=== PATIENT | female | born 1980 | race Caucasian/White ===

== ENCOUNTER 2021-04-29 00:29 | Emergency (ER) | payer OTHER ==
[~2021-04-29] VITALS: Ht 152.4 cm; Wt 70.9 kg
[2021-04-29] MEDS ORDERED: IRON1TAB2 PO (00:41)
[2021-04-29] MEDS ORDERED: ZOLO100T PO (00:41)
[2021-04-29] MEDS ORDERED: BUSP10TA PO (00:41)
[2021-04-29] MEDS ORDERED: VITA100093 PO (00:41)
[2021-04-29] MEDS ORDERED: KETOROLAC 30 MG/ML 1ML VIAL IV ONE (02:35)
[2021-04-29] MEDS ORDERED: ACETAMINOPHEN 500 MG TAB PO ONE (02:35)
[2021-04-29] MEDS ORDERED: diphenhydrAMINE 50MG/ML VIAL (J1200) IV ONE (02:35)
[2021-04-29] MEDS ORDERED: NS 1,000 ML IV ONE (02:35)
[2021-04-29] MEDS ORDERED: METOCLOPRAMIDE INJ 10MG/2ML VIAL (J2765 PER 1) IV ONE (03:00)
[2021-04-29 04:00] VITALS: BP 155/92
== END 2021-04-29 06:08 | disposition home or self-care (01) ==
LOC: M ED 00:29
DX: G43.909 Migraine, unspecified, not intractable, without status migrainosus (principal); Z79.899 Other long term (current) drug therapy; Z86.69 Personal history of other diseases of the nervous system and sense organs; Z88.1 Allergy status to other antibiotic agents; Z88.2 Allergy status to sulfonamides
CPT/HCPCS: 84702; 96374; 96375; 99284; J1200; J1885; J2765

== ENCOUNTER 2021-05-15 16:42 | Inpatient (IN) | payer OTHER ==
[~2021-05-15] VITALS: Ht 152.4 cm; Wt 75.1 kg
[~2021-05-15 16:42] MED LIST: BUSP10TA PO; IRON1TAB2 PO; VITA100093 PO; ZOLO100T PO
[2021-05-15] MEDS ORDERED: ONDANSETRON 4MG/2ML VIAL IV STA (18:00)
[2021-05-15 18:12] LABS: BASO # 0.2 10^3/uL (0.0-0.2); BASO % 0.6 % (0.0-1.0); EOS # 0.9 10^3/uL (0.0-0.5); EOS % 3.1 % (0.0-3.0); LYMPH # 3.3 10^3/uL (1.5-5.0); LYMPH % 10.9 % (24.0-44.0); MEAN CORPUSCULAR HEMOGLOBIN 31.6 pg (27.0-33.0); MEAN CORPUSCULAR HGB CONC 33.3 g/dl (32.0-36.5); MEAN CORPUSCULAR VOLUME 94.9 fl (80.0-96.0); MONO # 1.3 10^3/uL (0.0-0.8); MONO % 4.5 % (2.0-8.0); NEUTROPHILS # 23.6 10^3/uL (1.5-8.5); NEUTROPHILS % 78.8 % (36.0-66.0); PLATELET COUNT, AUTOMATED 312 10^3/uL (150-450); RED BLOOD COUNT 5.69 10^6/uL (4.00-5.40); WHITE BLOOD COUNT 29.9 10^3/uL (4.0-10.0)
[2021-05-15] MEDS ORDERED: NS 1,000 ML IV ONE ×2 (18:15→21:40)
[2021-05-15] MEDS ORDERED: MORPHINE 4 MG/ML 1ML VIAL/SYRINGE IV ONE (18:50)
[2021-05-15] MEDS ORDERED: LISI10TA24 PO (18:58)
[2021-05-15] MEDS ORDERED: CETI-24 PO (18:58)
[2021-05-15] MEDS ORDERED: BUPR150T12 PO (18:59)
[2021-05-15] MEDS ORDERED: ALBU8.5H PO (18:59)
[2021-05-15 19:20] LABS: ALBUMIN 3.4 GM/DL (3.2-5.2); ALT/SGPT 24 U/L (12-78); BILIRUBIN,DIRECT 0.3 MG/DL (0.0-0.2); BILIRUBIN,TOTAL 0.9 MG/DL (0.2-1.0); BLOOD UREA NITROGEN 31 MG/DL (7-18); CARBON DIOXIDE LEVEL 24 MEQ/L (21-32); CHLORIDE LEVEL 105 MEQ/L (98-107); CREATININE FOR GFR 1.28 MG/DL (0.55-1.30); GLOMERULAR FILTRATION RATE 49.7 (>60); GLUCOSE, FASTING 135 MG/DL (70-100); LIPASE 67 U/L (73-393); POTASSIUM SERUM 4.3 MEQ/L (3.5-5.1); SODIUM LEVEL 139 MEQ/L (136-145); TOTAL PROTEIN 6.4 GM/DL (6.4-8.2)
[2021-05-15 19:21] LABS: HCG, SERUM QUALITATIVE NEGATIVE (NEGATIVE)
[2021-05-15] MEDS ORDERED: ISOVUE-370 76% 100ML VIAL As Ordered ONE (19:22)
[2021-05-15] MEDS ORDERED: PIPERACILLIN/TAZOBACTAM SOD 3.375 GM in D5W MINI-BAG PLUS 50 ML IV ONE (20:45)
[2021-05-15] MEDS ORDERED: TREL1AER PO (22:06)
[2021-05-15] MEDS ORDERED: ETON1VAG VG (22:08)
[2021-05-15] MEDS ORDERED: HOME MED LIST COMPLETE! XX SCH (22:10)
[2021-05-15] MEDS ORDERED: MORPHINE 2 MG/ML 1ML VIAL IV PRN (23:00)
[2021-05-15] MEDS ORDERED: methylPREDNISolone 125MG 2ML VIAL IV ONE (23:00)
[2021-05-15] MEDS: NS 1,000 ML IV SCH (23:10)
[2021-05-15] MEDS ORDERED: SALIVA SUBSTITUTE(MOUTHKOTE) BTL MT PRN (23:10)
[2021-05-15] MEDS ORDERED: diphenhydrAMINE 50MG/ML VIAL (J1200) IV STA (23:16)
[2021-05-15 23:37] LABS: RSV AMPLIFICATION NEGATIVE (NEGATIVE)
[2021-05-15] MEDS ORDERED: ALBUTEROL 90 MCG/ACT 8GM HFA INHALER INH PRN (23:55)
[2021-05-16] MEDS ORDERED: FAMOTIDINE 20MG/2ML VIAL IVP ONE
[2021-05-16] MEDS ORDERED: ONDANSETRON 4MG/2ML VIAL IV PRN
[2021-05-16 02:18] LABS: C REACTIVE PROTEIN QUANTITATIV 2.91 MG/DL (0.00-0.30); THYROID STIMULATING HORMONE 9.92 uIU/ML (0.358-3.740)
[2021-05-16] MEDS ORDERED: NS 1,000 ML IV ONE (03:05)
[2021-05-16] MEDS ORDERED: NS 500 ML IV ONE (04:00)
[2021-05-16] MEDS: PIPERACILLIN/TAZOBACTAM SOD 3.375 GM in D5W MINI-BAG PLUS 50 ML IV SCH ×3 (05:18→16:36)
[2021-05-16] MEDS ORDERED: methylPREDNISolone 40MG 1ML VIAL IV SCH (06:00)
[2021-05-16] MEDS: HEPARIN SOD (PORCINE) 5000UNITS/ML 1ML VIAL/SYRINGE SQ SCH ×3 (06:25→22:23)
[2021-05-16] MEDS ORDERED: MAG SULF 1GM/100ML (MAG RUN) 1 GM in IV 1 EA IV ONE (07:25)
[2021-05-16 07:40] LABS: BASO % 0.2 % (0.0-1.0); EOS % 0.1 % (0.0-3.0); HEMATOCRIT 39.6 % (36.0-47.0); HEMOGLOBIN 13.1 g/dl (12.0-15.5); LYMPH # 0.9 10^3/uL (1.5-5.0); LYMPH % 7.4 % (24.0-44.0); MEAN CORPUSCULAR HEMOGLOBIN 31.7 pg (27.0-33.0); MEAN CORPUSCULAR HGB CONC 33.1 g/dl (32.0-36.5); MEAN CORPUSCULAR VOLUME 95.9 fl (80.0-96.0); MONO # 0.1 10^3/uL (0.0-0.8); MONO % 0.7 % (2.0-8.0); NEUTROPHILS # 10.8 10^3/uL (1.5-8.5); NEUTROPHILS % 90.3 % (36.0-66.0); PLATELET COUNT, AUTOMATED 187 10^3/uL (150-450); RED BLOOD COUNT 4.13 10^6/uL (4.00-5.40)
[2021-05-16 08:05] LABS: CALCIUM LEVEL 7.6 MG/DL (8.5-10.1); CREATININE FOR GFR 1.41 MG/DL (0.55-1.30); FREE T4 0.47 NG/DL (0.76-1.46); GLOMERULAR FILTRATION RATE 44.4 (>60); POTASSIUM SERUM 4.5 MEQ/L (3.5-5.1)
[2021-05-16] MEDS: NS 1,000 ML IV SCH ×3 (08:27→16:30)
[2021-05-16] MEDS: LEVOTHYROXINE 75MCG TABLET (0.075MG) PO SCH (10:31)
[2021-05-16 12:51] LABS: THYROGLOBULIN ANTIBODY 33.4 U/ML (<60.0); THYROID PEROXIDASE ANTIBODY 49.3 U/ML (<60.0)
[2021-05-16] MEDS ORDERED: ACETAMINOPHEN TAB 650MG DOSE (2X325MG) PO PRN (16:05)
[2021-05-16 16:23] VITALS: BP 136/93
[2021-05-16 20:35] VITALS: BP 132/88
[2021-05-16] MEDS: FAMOTIDINE IV BAG 20 MG in IV 1 EA IV SCH (22:24)
[2021-05-17] MEDS: NS 1,000 ML IV SCH (00:51)
[2021-05-17] MEDS: PIPERACILLIN/TAZOBACTAM SOD 3.375 GM in D5W MINI-BAG PLUS 50 ML IV SCH ×5 (00:51→23:46)
[2021-05-17 04:42] VITALS: BP 128/86
[2021-05-17] MEDS: HEPARIN SOD (PORCINE) 5000UNITS/ML 1ML VIAL/SYRINGE SQ SCH ×3 (05:35→22:41)
[2021-05-17] MEDS: LEVOTHYROXINE 75MCG TABLET (0.075MG) PO SCH (05:35)
[2021-05-17 06:23] LABS: BASO % 0.1 % (0.0-1.0); EOS # 0.1 10^3/uL (0.0-0.5); EOS % 0.6 % (0.0-3.0); HEMATOCRIT 32.3 % (36.0-47.0); LYMPH # 1.9 10^3/uL (1.5-5.0); LYMPH % 21.8 % (24.0-44.0); MEAN CORPUSCULAR HEMOGLOBIN 32.4 pg (27.0-33.0); MEAN CORPUSCULAR HGB CONC 32.8 g/dl (32.0-36.5); MEAN CORPUSCULAR VOLUME 98.8 fl (80.0-96.0); MONO # 0.5 10^3/uL (0.0-0.8); MONO % 5.7 % (2.0-8.0); NEUTROPHILS # 6.3 10^3/uL (1.5-8.5); PLATELET COUNT, AUTOMATED 157 10^3/uL (150-450); RED BLOOD COUNT 3.27 10^6/uL (4.00-5.40); WHITE BLOOD COUNT 8.8 10^3/uL (4.0-10.0)
[2021-05-17 06:45] LABS: HEMOGLOBIN 10.6 g/dl (12.0-15.5)
[2021-05-17 06:53] LABS: BLOOD UREA NITROGEN 13 MG/DL (7-18); CALCIUM LEVEL 7.5 MG/DL (8.5-10.1); CARBON DIOXIDE LEVEL 28 MEQ/L (21-32); CHLORIDE LEVEL 113 MEQ/L (98-107); CREATININE FOR GFR 0.98 MG/DL (0.55-1.30); GLOMERULAR FILTRATION RATE > 60.0 (>60); GLUCOSE, FASTING 98 MG/DL (70-100); SODIUM LEVEL 146 MEQ/L (136-145)
[2021-05-17 14:00] VITALS: BP 127/88
[2021-05-17 18:20] VITALS: BP 120/69
[2021-05-17] MEDS ORDERED: NYSTATIN 500,000 U/5 ML SUSP UDC PO ONE (19:55)
[2021-05-17] MEDS: FAMOTIDINE IV BAG 20 MG in IV 1 EA IV SCH (22:42)
[2021-05-18] MEDS: LEVOTHYROXINE 75MCG TABLET (0.075MG) PO SCH (05:42)
[2021-05-18] MEDS: PIPERACILLIN/TAZOBACTAM SOD 3.375 GM in D5W MINI-BAG PLUS 50 ML IV SCH ×3 (05:43→17:00)
[2021-05-18] MEDS: HEPARIN SOD (PORCINE) 5000UNITS/ML 1ML VIAL/SYRINGE SQ SCH ×2 (05:43→12:59)
[2021-05-18 06:00] VITALS: BP 108/71
[2021-05-18 06:18] LABS: BASO % 0.4 % (0.0-1.0); EOS # 0.3 10^3/uL (0.0-0.5); EOS % 4.2 % (0.0-3.0); HEMATOCRIT 35.2 % (36.0-47.0); HEMOGLOBIN 11.4 g/dl (12.0-15.5); LYMPH # 2.8 10^3/uL (1.5-5.0); LYMPH % 37.8 % (24.0-44.0); MEAN CORPUSCULAR HEMOGLOBIN 31.9 pg (27.0-33.0); MEAN CORPUSCULAR HGB CONC 32.4 g/dl (32.0-36.5); MEAN CORPUSCULAR VOLUME 98.6 fl (80.0-96.0); MONO # 0.6 10^3/uL (0.0-0.8); NEUTROPHILS # 3.6 10^3/uL (1.5-8.5); NEUTROPHILS % 48.9 % (36.0-66.0); PLATELET COUNT, AUTOMATED 160 10^3/uL (150-450); RED BLOOD COUNT 3.57 10^6/uL (4.00-5.40); WHITE BLOOD COUNT 7.3 10^3/uL (4.0-10.0)
[2021-05-18 06:47] LABS: BLOOD UREA NITROGEN 15 MG/DL (7-18); CALCIUM LEVEL 8.2 MG/DL (8.5-10.1); CARBON DIOXIDE LEVEL 29 MEQ/L (21-32); CHLORIDE LEVEL 110 MEQ/L (98-107); CREATININE FOR GFR 1.03 MG/DL (0.55-1.30); GLOMERULAR FILTRATION RATE > 60.0 (>60); GLUCOSE, FASTING 95 MG/DL (70-100); POTASSIUM SERUM 4.4 MEQ/L (3.5-5.1); SODIUM LEVEL 143 MEQ/L (136-145)
[2021-05-18] MEDS ORDERED: LACTOBACILLUS ACIDOPHILUS CAP (BACID) PO SCH (09:00)
[2021-05-18] MEDS: NYSTATIN 500,000 U/5 ML SUSP UDC SS SCH ×2 (12:58→16:56)
[2021-05-18 14:00] VITALS: BP 130/82
[2021-05-18] MEDS ORDERED: ONDA-83 PO (14:38)
[2021-05-18] MEDS ORDERED: AMOX875T2 PO (14:38)
[2021-05-18] MEDS ORDERED: PRED20TA PO (14:38)
[2021-05-18] MEDS ORDERED: RISATAB3 PO (14:38)
[2021-05-18] MEDS ORDERED: ACET1TAB55 PO (14:38)
[2021-05-18] MEDS ORDERED: PANT-23 PO (14:38)
[2021-05-18] MEDS ORDERED: NYST50SS SS (14:38)
[2021-05-19] MEDS ORDERED: LEVO75TA4 PO (14:21)
== END 2021-05-18 18:00 | disposition home or self-care (01) | DRG 249 ==
LOC: M ED 16:42 → M ED INP 22:35 → M MSPAV 05-16 16:38
PROVIDERS: ADMIT Internal Medicine; ATTEND Family Medicine
DX: A09 Infectious gastroenteritis and colitis, unspecified (principal); E87.2 Acidosis; E83.42 Hypomagnesemia; K58.9 Irritable bowel syndrome, unspecified; I10 Essential (primary) hypertension; D64.9 Anemia, unspecified; Z79.899 Other long term (current) drug therapy; Z88.2 Allergy status to sulfonamides; Z20.822 Contact with and (suspected) exposure to COVID-19; G43.909 Migraine, unspecified, not intractable, without status migrainosus; F32.A Depression, unspecified; F41.9 Anxiety disorder, unspecified; J45.909 Unspecified asthma, uncomplicated; D72.829 Elevated white blood cell count, unspecified; E03.9 Hypothyroidism, unspecified; K21.9 Gastro-esophageal reflux disease without esophagitis; E86.0 Dehydration; K56.7 Ileus, unspecified

== ENCOUNTER → 2022-02-17 | Outpatient (CLI) | payer OTHER ==
[~2022-02-17] MED LIST changes: +ACET1TAB55 PO; +ALBU8.5H PO; +AMOX875T2 PO; +BUPR150T12 PO; +CETI-24 PO; +ETON1VAG VG; +LEVO75TA4 PO; +LISI10TA24 PO; +NYST50SS SS; +ONDA-83 PO; +PANT-23 PO; +PRED20TA PO; +RISATAB3 PO; +TREL1AER PO
== END ==
LOC: M RAD 17:13
PROVIDERS: ATTEND Nurse Practitioner Family
DX: J45.40 Moderate persistent asthma, uncomplicated (principal)

== ENCOUNTER → 2022-03-09 | Outpatient (REF) | payer OTHER ==
[~2022-03-09] MED LIST changes: +NYST-38 SS; -NYST50SS SS
== END ==
LOC: M LAB REF 09:40
PROVIDERS: ATTEND Internal Medicine Gastroenterology
DX: K58.1 Irritable bowel syndrome with constipation (principal)

== ENCOUNTER → 2022-03-10 | Outpatient (CLI) | payer OTHER ==
[~2022-03-10] MED LIST changes: +GLUCAGON INJ 1MG VIAL As Ordered ONE; +ISOVUE-370 76% 100ML VIAL As Ordered ONE; +NEULUMEX 0.1% SUSPENSION 450ML BOTTLE (FORMERLY VOLUMEN) As Ordered ONE
[2022-03-10 10:02] LABS: BASO # 0.1 10^3/uL (0.0-0.2); BASO % 0.8 % (0.0-1.0); EOS # 0.3 10^3/uL (0.0-0.5); EOS % 4.9 % (0.0-3.0); HEMATOCRIT 40.2 % (36.0-47.0); LYMPH # 1.2 10^3/uL (1.5-5.0); LYMPH % 18.9 % (24.0-44.0); MEAN CORPUSCULAR HEMOGLOBIN 31.4 pg (27.0-33.0); MEAN CORPUSCULAR HGB CONC 32.3 g/dl (32.0-36.5); MEAN CORPUSCULAR VOLUME 97.1 fl (80.0-96.0); MONO # 0.5 10^3/uL (0.0-0.8); MONO % 7.5 % (2.0-8.0); NEUTROPHILS # 4.4 10^3/uL (1.5-8.5); NEUTROPHILS % 67.4 % (36.0-66.0); PLATELET COUNT, AUTOMATED 172 10^3/uL (150-450); RED BLOOD COUNT 4.14 10^6/uL (4.00-5.40); WHITE BLOOD COUNT 6.5 10^3/uL (4.0-10.0)
[2022-03-10 10:22] LABS: ERYTHROCYTE SEDIMENTATION RATE 14 mm/hr (0-20)
[2022-03-10 10:34] LABS: ALBUMIN 3.4 G/DL (3.2-5.2); ALKALINE PHOSPHATASE 69 U/L (46-116); ALT/SGPT 15 U/L (7.0-40); AST/SGOT 16 U/L (<34); BILIRUBIN,TOTAL 0.4 MG/DL (0.3-1.2); BLOOD UREA NITROGEN 11 MG/DL (9-23); CALCIUM LEVEL 8.6 MG/DL (8.5-10.1); CARBON DIOXIDE LEVEL 27 MMOL/L (20-31); CHLORIDE LEVEL 107 MMOL/L (98-107); CREATININE FOR GFR 0.86 MG/DL (0.55-1.30); GLOMERULAR FILTRATION RATE > 60.0 (>60); GLUCOSE, FASTING 83 MG/DL (60-100); POTASSIUM SERUM 4.1 MMOL/L (3.5-5.1); SODIUM LEVEL 140 MMOL/L (136-145); TOTAL PROTEIN 6.5 G/DL (5.7-8.2)
[2022-03-10 10:35] LABS: IMMUNOGLOBULIN A 258.4 MG/DL (40-350)
[2022-03-10 10:36] LABS: THYROID STIMULATING HORMONE 2.052 uIU/ML (0.55-4.78)
== END ==
LOC: M LAB 08:31 → M RAD 08:31
PROVIDERS: ATTEND Internal Medicine Gastroenterology
DX: K50.00 Crohn's disease of small intestine without complications (principal); R93.3 Abnormal findings on diagnostic imaging of other parts of digestive tract
CPT/HCPCS: 36415; 74177; 80053; 82784; 84439; 84443; 85025; 85652; 86140; 86364; J1610

== ENCOUNTER → 2022-04-02 | Outpatient (CLI) | payer OTHER ==
[~2022-04-02] MED LIST changes: +AMIT10TA7 PO; +BISA5TAB72 PO; +DOCU100C16 PO; -GLUCAGON INJ 1MG VIAL As Ordered ONE; -ISOVUE-370 76% 100ML VIAL As Ordered ONE; +LEVO100T5 PO; -NEULUMEX 0.1% SUSPENSION 450ML BOTTLE (FORMERLY VOLUMEN) As Ordered ONE
== END ==
LOC: M LABSMTC 11:09
PROVIDERS: ATTEND Anesthesiology
DX: Z01.812 Encounter for preprocedural laboratory examination (principal); Z11.52 Encounter for screening for COVID-19

== ENCOUNTER 2022-04-07 11:27 | Day surgery (SDC) | payer OTHER ==
[~2022-04-07] VITALS: Ht 152.4 cm; Wt 68.4 kg
[~2022-04-07 11:27] MED LIST changes: +NS 1,000 ML IV ONE
[2022-04-07] MEDS ORDERED: LIDOCAINE 2% 100MG/5ML SDV (FOR ANES.) As Ordered ONE (13:07)
[2022-04-07] MEDS ORDERED: propofoL 200 MG/20 ML VIAL As Ordered ONE (13:07)
[2022-04-07] MEDS ORDERED: fentaNYL 100 MCG/2 ML INJECTION As Ordered ONE (14:19)
[2022-04-07 15:03] VITALS: BP 128/69
== END 2022-04-07 15:20 | disposition home or self-care (01) ==
LOC: M OPP 11:27
PROVIDERS: ATTEND Internal Medicine Gastroenterology
DX: K64.8 Other hemorrhoids (principal); K63.89 Other specified diseases of intestine; K29.60 Other gastritis without bleeding; K58.8 Other irritable bowel syndrome; G47.33 Obstructive sleep apnea (adult) (pediatric); E03.9 Hypothyroidism, unspecified; D50.9 Iron deficiency anemia, unspecified; G43.909 Migraine, unspecified, not intractable, without status migrainosus; Z79.51 Long term (current) use of inhaled steroids; Z79.890 Hormone replacement therapy; Z79.899 Other long term (current) drug therapy; Z88.2 Allergy status to sulfonamides; Z97.5 Presence of (intrauterine) contraceptive device
CPT/HCPCS: 43239; 45380; 88305; J3010

== ENCOUNTER 2022-06-09 19:04 | Emergency (ER) | payer OTHER ==
[~2022-06-09] VITALS: Ht 152.4 cm; Wt 65.8 kg
[~2022-06-09 19:04] MED LIST changes: -NS 1,000 ML IV ONE
[2022-06-09] MEDS ORDERED: KETO2CR (19:20)
[2022-06-09] MEDS ORDERED: BUPR-368 (19:20)
[2022-06-09] MEDS ORDERED: KETOROLAC 30 MG/ML 1ML VIAL IV ONE (22:55)
[2022-06-09 23:13] LABS: BASO % 0.4 % (0.0-1.0); EOS % 0.6 % (0.0-3.0); HEMATOCRIT 41.8 % (36.0-47.0); HEMOGLOBIN 14.4 g/dl (12.0-15.5); LYMPH # 1.1 10^3/uL (1.5-5.0); LYMPH % 14.9 % (24.0-44.0); MEAN CORPUSCULAR HEMOGLOBIN 31.3 pg (27.0-33.0); MEAN CORPUSCULAR HGB CONC 34.4 g/dl (32.0-36.5); MEAN CORPUSCULAR VOLUME 90.9 fl (80.0-96.0); MONO # 0.3 10^3/uL (0.0-0.8); MONO % 4.7 % (2.0-8.0); NEUTROPHILS # 5.8 10^3/uL (1.5-8.5); NEUTROPHILS % 79.3 % (36.0-66.0); PLATELET COUNT, AUTOMATED 224 10^3/uL (150-450); WHITE BLOOD COUNT 7.3 10^3/uL (4.0-10.0)
[2022-06-09 23:35] LABS: HCG, SERUM QUALITATIVE NEGATIVE (NEGATIVE); LIPASE 24 U/L (12-53)
[2022-06-09 23:37] LABS: CPK CREATINE PHOSPHOKINASE 116 U/L (34-145)
[2022-06-09 23:41] LABS: ALBUMIN 4.1 G/DL (3.2-5.2); ALKALINE PHOSPHATASE 81 U/L (46-116); ALT/SGPT 17 U/L (7.0-40); AST/SGOT 20 U/L (<34); BILIRUBIN,DIRECT 0.3 MG/DL (<0.4); BILIRUBIN,TOTAL 1.1 MG/DL (0.3-1.2); BLOOD UREA NITROGEN 8 MG/DL (9-23); CALCIUM LEVEL 9.2 MG/DL (8.5-10.1); CARBON DIOXIDE LEVEL 25 MMOL/L (20-31); CHLORIDE LEVEL 98 MMOL/L (98-107); CK-MB VALUE MASS < 1.0 NG/ML (<3.6); GLOMERULAR FILTRATION RATE > 60.0 (>60); GLUCOSE, FASTING 105 MG/DL (60-100); MB/CK RELATIVE INDEX 0.86 (< OR =4); POTASSIUM SERUM 2.9 MMOL/L (3.5-5.1); SODIUM LEVEL 135 MMOL/L (136-145); TOTAL PROTEIN 8.3 G/DL (5.7-8.2)
[2022-06-09 23:58] LABS: MAGNESIUM LEVEL 1.6 MG/DL (1.8-2.4)
[2022-06-10] MEDS ORDERED: MAG SULF 1GM/100ML (MAG RUN) 1 GM in IV 1 EA IV ONE ×2 (00:30→02:05)
[2022-06-10] MEDS ORDERED: POTASSIUM CHLORIDE 10MEQ SR TABLET PO ONE ×2 (01:00)
[2022-06-10] MEDS ORDERED: POTA-151 PO (03:22)
[2022-06-10 03:41] VITALS: BP 136/75
== END 2022-06-10 03:42 | disposition home or self-care (01) ==
LOC: M ED 19:04 → EDSEX 19:04 → EDBD 19:04 → M ED 06-10 03:42
DX: R07.89 Other chest pain (principal); E87.6 Hypokalemia; E83.42 Hypomagnesemia; I10 Essential (primary) hypertension; J45.909 Unspecified asthma, uncomplicated; E03.9 Hypothyroidism, unspecified; G43.909 Migraine, unspecified, not intractable, without status migrainosus; Z79.899 Other long term (current) drug therapy; Z88.2 Allergy status to sulfonamides
CPT/HCPCS: 71045; 80047; 80048; 80076; 82550; 82553; 83690; 83735; 84439; 84443; 84703; 85025; 93005; 94760; 96365; 96366; 96375; 99284; J1885; J3475

== ENCOUNTER → 2022-09-13 | Outpatient (CLI) | payer OTHER ==
[~2022-09-13] MED LIST changes: +BUPR-368; +KETO2CR; +POTA-151 PO
== END ==
LOC: M PLAIMG 13:18
PROVIDERS: ATTEND Nurse Practitioner Family
DX: R91.1 Solitary pulmonary nodule (principal)

== ENCOUNTER 2022-11-24 11:32 | Emergency (ER) | payer OTHER ==
[~2022-11-24] VITALS: Ht 152.4 cm; Wt 71.6 kg
[2022-11-24 11:33] VITALS: BP 176/82; TEMP 97.3; O2SAT 97
[2022-11-24] MEDS ORDERED: ONDANSETRON 4MG 2ML VIAL IV ONE (12:30)
[2022-11-24] MEDS ORDERED: NS 1,000 ML IV ONE (12:30)
[2022-11-24] MEDS ORDERED: KETOROLAC 30 MG/ML 1ML VIAL IV ONE (12:30)
[2022-11-24 13:12] LABS: BASO % 0.3 % (0.0-1.0); EOS # 0.1 10^3/uL (0.0-0.5); EOS % 1.8 % (0.0-3.0); HEMOGLOBIN 13.9 g/dl (12.0-15.5); LYMPH # 1.2 10^3/uL (1.5-5.0); LYMPH % 18.5 % (24.0-44.0); MEAN CORPUSCULAR HEMOGLOBIN 30.2 pg (27.0-33.0); MEAN CORPUSCULAR HGB CONC 33.1 g/dl (32.0-36.5); MEAN CORPUSCULAR VOLUME 91.1 fl (80.0-96.0); MONO # 0.4 10^3/uL (0.0-0.8); MONO % 6.4 % (2.0-8.0); NEUTROPHILS # 4.8 10^3/uL (1.5-8.5); NEUTROPHILS % 72.7 % (36.0-66.0); PLATELET COUNT, AUTOMATED 185 10^3/uL (150-450); RED BLOOD COUNT 4.61 10^6/uL (4.00-5.40); WHITE BLOOD COUNT 6.6 10^3/uL (4.0-10.0)
[2022-11-24 13:33] LABS: LIPASE 35 U/L (12-53)
[2022-11-24 13:34] LABS: HCG, SERUM QUALITATIVE NEGATIVE (NEGATIVE)
[2022-11-24 13:36] LABS: ALBUMIN 3.4 G/DL (3.2-5.2); ALKALINE PHOSPHATASE 95 U/L (46-116); ALT/SGPT 19 U/L (7.0-40); AST/SGOT 23 U/L (<34); BILIRUBIN,DIRECT 0.1 MG/DL (<0.4); BILIRUBIN,TOTAL 0.4 MG/DL (0.3-1.2); BLOOD UREA NITROGEN 10 MG/DL (9-23); CALCIUM LEVEL 9.6 MG/DL (8.5-10.1); CARBON DIOXIDE LEVEL 29 MMOL/L (20-31); CHLORIDE LEVEL 104 MMOL/L (98-107); CREATININE FOR GFR 0.81 MG/DL (0.55-1.30); GLOMERULAR FILTRATION RATE > 60.0 (>58); GLUCOSE, FASTING 112 MG/DL (60-100); POTASSIUM SERUM 3.4 MMOL/L (3.5-5.1); SODIUM LEVEL 142 MMOL/L (136-145); TOTAL PROTEIN 7.4 G/DL (5.7-8.2)
[2022-11-24 13:42] LABS: RSV AMPLIFICATION NEGATIVE (NEGATIVE)
[2022-11-24] MEDS ORDERED: ISOVUE-370 76% 100ML VIAL As Ordered ONE (13:45)
[2022-11-24] MEDS ORDERED: BENEPOW18 PO (15:44)
== END 2022-11-24 16:00 | disposition home or self-care (01) ==
LOC: M ED 11:32
DX: K59.00 Constipation, unspecified (principal); Z88.1 Allergy status to other antibiotic agents; Z88.2 Allergy status to sulfonamides; Z79.899 Other long term (current) drug therapy; Z79.890 Hormone replacement therapy; Z79.51 Long term (current) use of inhaled steroids; I45.10 Unspecified right bundle-branch block
CPT/HCPCS: 74177; 80048; 80076; 81001; 83690; 84703; 85025; 87631; 93005; 96374; 96375; 99284; J1885; J2405; Q9967

== ENCOUNTER 2023-02-18 20:52 | Emergency (ER) | payer OTHER ==
[~2023-02-18] VITALS: Ht 152.4 cm; Wt 70.8 kg
[2023-02-18 20:52] VITALS: BP 135/79; TEMP 98.2; O2SAT 99
[~2023-02-18 20:52] MED LIST changes: +BENEPOW18 PO
[2023-02-18] MEDS ORDERED: LINZ290C (21:00)
[2023-02-18 22:02] LABS: BASO % 0.3 % (0.0-1.0); EOS # 0.2 10^3/uL (0.0-0.5); EOS % 1.2 % (0.0-3.0); HEMATOCRIT 37.3 % (36.0-47.0); HEMOGLOBIN 12.5 g/dl (12.0-15.5); LYMPH # 2.7 10^3/uL (1.5-5.0); LYMPH % 18.1 % (24.0-44.0); MEAN CORPUSCULAR HEMOGLOBIN 31.1 pg (27.0-33.0); MEAN CORPUSCULAR HGB CONC 33.5 g/dl (32.0-36.5); MEAN CORPUSCULAR VOLUME 92.8 fl (80.0-96.0); MONO # 0.9 10^3/uL (0.0-0.8); MONO % 5.9 % (2.0-8.0); NEUTROPHILS % 74.1 % (36.0-66.0); PLATELET COUNT, AUTOMATED 252 10^3/uL (150-450); RED BLOOD COUNT 4.02 10^6/uL (4.00-5.40); WHITE BLOOD COUNT 14.8 10^3/uL (4.0-10.0)
[2023-02-18 22:21] LABS: BLOOD UREA NITROGEN 11 MG/DL (9-23); CALCIUM LEVEL 8.8 MG/DL (8.5-10.1); CARBON DIOXIDE LEVEL 29 MMOL/L (20-31); CHLORIDE LEVEL 105 MMOL/L (98-107); CREATININE FOR GFR 0.93 MG/DL (0.55-1.30); GLOMERULAR FILTRATION RATE > 60.0 (>58); GLUCOSE, FASTING 118 MG/DL (60-100); POTASSIUM SERUM 3.5 MMOL/L (3.5-5.1); SODIUM LEVEL 141 MMOL/L (136-145)
[2023-02-18 22:29] LABS: HCG, SERUM QUALITATIVE NEGATIVE (NEGATIVE)
[2023-02-18] MEDS ORDERED: ISOVUE-370 76% 100ML VIAL As Ordered ONE (23:50)
[2023-02-19] MEDS ORDERED: NS 1,000 ML IV ONE (00:45)
[2023-02-19 01:15] LABS: CK-MB VALUE MASS < 1.0 NG/ML (<3.6)
[2023-02-19] MEDS ORDERED: ALBUTEROL 90 MCG/ACT 8GM HFA INHALER INH ONE (01:15)
[2023-02-19] MEDS ORDERED: BENZONATATE 100MG CAPSULE PO ONE (01:15)
[2023-02-19 01:16] LABS: CPK CREATINE PHOSPHOKINASE 27 U/L (34-145)
== END 2023-02-19 02:10 | disposition home or self-care (01) ==
LOC: M ED 20:52
DX: R07.89 Other chest pain (principal); R05.9 Cough, unspecified; Z88.2 Allergy status to sulfonamides; Z79.52 Long term (current) use of systemic steroids; Z79.899 Other long term (current) drug therapy; Z79.1 Long term (current) use of non-steroidal anti-inflammatories (NSAID); Z79.810 Long term (current) use of selective estrogen receptor modulators (SERMs)
CPT/HCPCS: 71275; 80048; 82550; 82553; 84703; 85025; 85379; 87486; 87581; 87633; 87798; 93005; 94640; 96360; 99284; Q9967

== ENCOUNTER → 2023-02-26 | Outpatient (CLI) | payer OTHER ==
[~2023-02-26] MED LIST changes: +LINZ290C; +PROHANCE 279.3MG/ML 15ML VIAL ONE
== END ==
LOC: M PLAIMG 08:53
PROVIDERS: ATTEND Physician Assistant
DX: H93.11 Tinnitus, right ear (principal); J32.0 Chronic maxillary sinusitis

== ENCOUNTER → 2023-03-23 | Outpatient (CLI) | payer OTHER ==
[~2023-03-23] MED LIST changes: -PROHANCE 279.3MG/ML 15ML VIAL ONE
== END ==
LOC: M PLAIMG 13:32
PROVIDERS: ATTEND Physician Assistant
DX: J32.8 Other chronic sinusitis (principal); Z98.890 Other specified postprocedural states

== ENCOUNTER → 2023-04-02 | Outpatient (CLI) | payer OTHER | LOC: M WHC 08:33 | PROVIDERS: ATTEND Advanced Practice Midwife | DX: Z12.31 Encounter for screening mammogram for malignant neoplasm of breast (principal) ==

== ENCOUNTER 2023-05-18 14:48 | Emergency (ER) | payer OTHER ==
[~2023-05-18] VITALS: Ht 152.4 cm; Wt 74.6 kg
[2023-05-18] MEDS ORDERED: SERT50TA29 (15:06)
[2023-05-18 15:44] LABS: HEMATOCRIT 44.9 % (36.0-47.0); HEMOGLOBIN 14.7 g/dl (12.0-15.5); LYMPH % 5.3 % (24.0-44.0); MEAN CORPUSCULAR HEMOGLOBIN 29.7 pg (27.0-33.0); MEAN CORPUSCULAR HGB CONC 32.7 g/dl (32.0-36.5); MEAN CORPUSCULAR VOLUME 90.7 fl (80.0-96.0); MONO % 3.8 % (2.0-8.0); PLATELET COUNT, AUTOMATED 229 10^3/uL (150-450); RED BLOOD COUNT 4.95 10^6/uL (4.00-5.40); WHITE BLOOD COUNT 14.8 10^3/uL (4.0-10.0)
[2023-05-18 15:45] LABS: BASO % 0.3 % (0.0-1.0); EOS % 0.1 % (0.0-3.0); LYMPH # 0.8 10^3/uL (1.5-5.0); MONO # 0.6 10^3/uL (0.0-0.8); NEUTROPHILS # 13.3 10^3/uL (1.5-8.5)
[2023-05-18] MEDS: PANTOPRAZOLE 40MG VIAL IV ONE (16:07)
[2023-05-18] MEDS: ONDANSETRON 4MG 2ML VIAL IV ONE (16:07)
[2023-05-18] MEDS: NS 1,000 ML IV ONE (16:07)
[2023-05-18] MEDS: KETOROLAC 30 MG/ML 1ML VIAL IV ONE (16:09)
[2023-05-18 16:12] LABS: ALBUMIN 3.6 G/DL (3.2-5.2); BILIRUBIN,DIRECT 0.2 MG/DL (<0.4); BILIRUBIN,TOTAL 0.7 MG/DL (0.3-1.2); TOTAL PROTEIN 7.8 G/DL (5.7-8.2)
[2023-05-18] MEDS ORDERED: KETO10TAB PO (16:51)
[2023-05-18 17:51] VITALS: BP 143/75; TEMP 97.2; O2SAT 100
== END 2023-05-18 18:08 | disposition home or self-care (01) ==
LOC: M ED 14:48 → EDBD 14:48 → M ED 18:08
DX: R19.7 Diarrhea, unspecified (principal); K21.9 Gastro-esophageal reflux disease without esophagitis; Z79.3 Long term (current) use of hormonal contraceptives; Z79.899 Other long term (current) drug therapy; Z88.2 Allergy status to sulfonamides
CPT/HCPCS: 74176; 80047; 80076; 83690; 84702; 85025; 93041; 96361; 96374; 96375; 99284; C9113; J1885; J2405

== ENCOUNTER 2023-09-28 20:18 | Emergency (ER) | payer OTHER ==
[~2023-09-28] VITALS: Ht 162.6 cm; Wt 73.6 kg
[~2023-09-28 20:18] MED LIST changes: +KETO10TAB PO; +SERT50TA29
[2023-09-29] MEDS: KETOROLAC 30 MG/ML 1ML VIAL IV ONE (06:43)
[2023-09-29] MEDS: METHOCARBAMOL 1,000 MG/10 ML VIAL IV ONE (06:46)
[2023-09-29] MEDS ORDERED: PERC5TAB12 PO (07:47)
[2023-09-29] MEDS ORDERED: METH-1165 PO (07:47)
[2023-09-29] MEDS ORDERED: NAPR-837 PO (07:47)
[2023-09-29 08:21] VITALS: BP 135/86; TEMP 97.6; O2SAT 98
== END 2023-09-29 08:25 | disposition home or self-care (01) ==
LOC: M ED 20:18
DX: M54.50 Low back pain, unspecified (principal); M47.816 Spondylosis without myelopathy or radiculopathy, lumbar region; M47.817 Spondylosis without myelopathy or radiculopathy, lumbosacral region; I10 Essential (primary) hypertension; G43.909 Migraine, unspecified, not intractable, without status migrainosus; F41.1 Generalized anxiety disorder; Z88.2 Allergy status to sulfonamides; Z79.52 Long term (current) use of systemic steroids; Z79.899 Other long term (current) drug therapy
CPT/HCPCS: 72131; 96374; 96375; 99284; J1885; J2800

== ENCOUNTER → 2023-10-11 | Outpatient (CLI) | payer OTHER ==
[~2023-10-11] MED LIST changes: +METH-1165 PO; +NAPR-837 PO; +PERC5TAB12 PO
== END ==
LOC: M RAD 09:31
PROVIDERS: ATTEND Nurse Practitioner Family
DX: D41.02 Neoplasm of uncertain behavior of left kidney (principal)

== ENCOUNTER → 2023-10-11 | Outpatient (CLI) | payer OTHER | LOC: M RAD 09:28 | PROVIDERS: ATTEND Nurse Practitioner Family | DX: R91.8 Other nonspecific abnormal finding of lung field (principal); J84.10 Pulmonary fibrosis, unspecified ==

== ENCOUNTER → 2023-11-12 | Outpatient (CLI) | payer OTHER ==
[~2023-11-12] MED LIST changes: +ISOVUE-370 76% 100ML VIAL ONE
== END ==
LOC: M PLAIMG 13:04
PROVIDERS: ATTEND Nurse Practitioner Family
DX: D41.02 Neoplasm of uncertain behavior of left kidney (principal); J84.10 Pulmonary fibrosis, unspecified; K76.89 Other specified diseases of liver; D75.89 Other specified diseases of blood and blood-forming organs; N20.0 Calculus of kidney; N28.89 Other specified disorders of kidney and ureter

== ENCOUNTER → 2024-04-25 | Outpatient (CLI) | payer OTHER ==
[~2024-04-25] MED LIST changes: -ISOVUE-370 76% 100ML VIAL ONE
== END ==
LOC: M SOG 15:14
PROVIDERS: ATTEND Physician Assistant
DX: M54.2 Cervicalgia (principal); M54.59 Other low back pain

== ENCOUNTER → 2024-05-16 | Outpatient (CLI) | payer OTHER | LOC: M RAD 15:28 | PROVIDERS: ATTEND Physician Assistant | DX: M50.21 Other cervical disc displacement, high cervical region (principal); M50.221 Other cervical disc displacement at C4-C5 level; M50.222 Other cervical disc displacement at C5-C6 level; M47.813 Spondylosis without myelopathy or radiculopathy, cervicothoracic region; M48.03 Spinal stenosis, cervicothoracic region; M47.816 Spondylosis without myelopathy or radiculopathy, lumbar region; M51.26 Other intervertebral disc displacement, lumbar region; M48.061 Spinal stenosis, lumbar region without neurogenic claudication ==

== ENCOUNTER → 2024-06-03 | Outpatient (CLI) | payer OTHER | LOC: M WHC 15:40 | PROVIDERS: ATTEND Obstetrics & Gynecology | DX: Z12.31 Encounter for screening mammogram for malignant neoplasm of breast (principal); R92.323 Mammographic fibroglandular density, bilateral breasts ==

== ENCOUNTER → 2024-06-12 | Outpatient (CLI) | payer OTHER | LOC: M RAD 07:59 | PROVIDERS: ATTEND Nurse Practitioner Family | DX: N20.0 Calculus of kidney (principal) ==

== ENCOUNTER → 2024-06-26 | Outpatient (REF) | payer OTHER ==
[2024-06-26 18:21] LABS: APPEARANCE, URINE CLOUDY (CLEAR); BACTERIA, URINE AUTO 2+ (NEGATIVE); BILIRUBIN, URINE AUTO NEGATIVE (NEGATIVE); BLOOD, URINE BLOOD 2+ (NEGATIVE); COLOR, URINE YELLOW (YELLOW); GLUCOSE, URINE (UA) AUTO NEGATIVE (NEGATIVE); KETONE, URINE AUTO NEGATIVE (NEGATIVE); LEUKOCYTE ESTERASE, URINE AUTO 2+ (NEGATIVE); MUCUS, URINE SMALL (NEGATIVE); NITRITE, URINE AUTO POSITIVE (NEGATIVE); PROTEIN, URINE AUTO 3+ mg/dL (NEGATIVE); RBC, URINE AUTO 98 /HPF (0-3); SPECIFIC GRAVITY URINE AUTO 1.015 (1.002-1.035); SQUAMOUS EPITHELIAL CELL UR AU 5 /HPF (0-6); UROBILINOGEN, URINE AUTO 0.2 mg/dL (0.0-2.0); WBC, URINE AUTO TNTC /HPF (0-3)
== END ==
LOC: M SMT 16:52
PROVIDERS: ATTEND Nurse Practitioner Family
DX: Z87.440 Personal history of urinary (tract) infections (principal)

== ENCOUNTER → 2024-09-09 | Outpatient (CLI) | payer OTHER ==
[~2024-09-09] MED LIST changes: +AMIT10TA11 PO; -AMIT10TA7 PO
== END ==
LOC: M RAD 17:12
PROVIDERS: ATTEND Nurse Practitioner Family
DX: R91.1 Solitary pulmonary nodule (principal); B39.2 Pulmonary histoplasmosis capsulati, unspecified

== ENCOUNTER → 2024-12-06 | Outpatient (CLI) | payer OTHER | LOC: M RAD 12-02 16:46 | PROVIDERS: ATTEND Physician Assistant | DX: M25.512 Pain in left shoulder (principal) ==

== ENCOUNTER → 2024-12-26 | Outpatient (REF) | payer OTHER ==
[2024-12-26 14:00] LABS: APPEARANCE, URINE HAZY (CLEAR); BACTERIA, URINE AUTO NEGATIVE (NEGATIVE); BILIRUBIN, URINE AUTO NEGATIVE (NEGATIVE); BLOOD, URINE BLOOD NEGATIVE (NEGATIVE); GLUCOSE, URINE (UA) AUTO NEGATIVE (NEGATIVE); KETONE, URINE AUTO NEGATIVE (NEGATIVE); LEUKOCYTE ESTERASE, URINE AUTO TRACE (NEGATIVE); MUCUS, URINE SMALL (NEGATIVE); NITRITE, URINE AUTO NEGATIVE (NEGATIVE); PROTEIN, URINE AUTO NEGATIVE (NEGATIVE); RBC, URINE AUTO 1 /HPF (0-3); SPECIFIC GRAVITY URINE AUTO 1.023 (1.002-1.035); SQUAMOUS EPITHELIAL CELL UR AU 2 /HPF (0-6); UROBILINOGEN, URINE AUTO 0.2 mg/dL (0.0-2.0); WBC, URINE AUTO 4 /HPF (0-3)
== END ==
LOC: M SMT 13:10
PROVIDERS: ATTEND Nurse Practitioner Family
DX: Z87.440 Personal history of urinary (tract) infections (principal)

== ENCOUNTER → 2025-02-09 | Outpatient (REF) | payer OTHER | LOC: M LAB REF 11:04 | PROVIDERS: ATTEND Nurse Practitioner Family | DX: K58.1 Irritable bowel syndrome with constipation (principal) ==